=== PATIENT | male | born 1950 | race Caucasian/White ===

== ENCOUNTER 2017-09-11 15:00 | Observation (INO) | payer MEDICARE ==
[2017-09-11 15:45] LABS: #Eosinphils 0.3 thou/uL (0.0-0.7); #Lymphocytes 1.3 thou/uL (1.20-3.40); #Monocytes 0.5 thou/uL (0.11-0.59); #Neutrophils 2.5 thou/uL (1.40-6.50); %Basophils 0.8 % (0.0-1.0); %Eosinophils 7.3 % (0.0-10.0); %Monocytes 10.5 % (0.0-10.0); %Neutrophils 54.4 % (42.0-75.0); Mean Corpuscular Hemoglobin 26.6 pg (27.0-31.0); Mean Corpuscular Volume 80.8 fl (80.0-94.0); Mean Platelet Volume 6.7 fL (7.4-10.4); Platelet Count 134 thou/uL (130-400); RBC Distribution Width 15.2 % (11.5-14.5); Red Blood Cell (RBC) Count 4.49 mill/uL (4.70-6.10); White Blood Cell (WBC) Count 4.7 thou/uL (4.8-10.8)
[2017-09-11 15:58] LABS: Acetaminophen Less than 6.0 mcg/mL (10.0-30.0); Alcohol Less than 10 mg/dL (Less than 10); Salicylate Less than 8.0 mg/dL (15.0-30.0)
[2017-09-11 15:59] LABS: ALT (SGPT) 17 U/L (8-55); AST (SGOT) 29 U/L (5-34); Albumin 3.3 g/dL (3.4-4.8); Alkaline Phosphatase 132 U/L (40-150); Anion Gap 11 mmol/L (10-20); BUN (Urea Nitrogen) 23 mg/dL (8.4-25.7); Bilirubin, Total 0.4 mg/dL (0.2-1.2); CK (CPK) 186 U/L (30-200); Calc. Creatinine Clearance 0 mL/min (70-130); Calcium 8.4 mg/dL (7.8-10.44); Carbon Dioxide 20 mmol/L (23-31); Chloride 112 mmol/L (98-107); Estimated GFR-MDRD 61; Globulin 2.6 g/dL (2.4-3.5); Glucose 122 mg/dL (80-115); Lipase 24 U/L (8-78); Potassium 4.1 mmol/L (3.5-5.1); Protein, Total 5.9 g/dL (5.8-8.1); Sodium 139 mmol/L (136-145)
--- NOTE | 2017-09-11 16:05 | CT ---
CT BRAIN: Date: 09/11/17 HISTORY: Altered mental status. TECHNIQUE: Noncontrast enhanced CT images of the brain obtained from the base of the skull through the vertex. B rain and bone windows are obtained. FINDINGS: CT images of the brain demonstrate the brain to be unremarkable. No evidence of intracranial masses, hemorrhages, strokes, or contusions seen. IMPRESSION: Normal CT brain. POS: [facility]
--- NOTE | 2017-09-11 16:07 | RAD ---
CHEST 1 VIEW: Date: 09/11/17 HISTORY: 67-year-old male with history of altered mental status. COMPARISON: 08/16/12. FINDINGS: Monitor leads overlie the chest. Bilateral pleural thickening. Less than optimal inspiration. No conf luent pneumonia, overt edema, or significant acute pleural effusion. IMPRESSION: Stable appearance of the chest. No new process. POS: OFF
[2017-09-11 16:13] LABS: CKMB 1.1 ng/mL (0-6.6); Troponin I Less than 0.010 ng/mL (< 0.028)
[2017-09-11] MEDS ORDERED: Ketorolac Tromethamine 30 MG/ML VIAL ONE (17:01)
[2017-09-11] MEDS ORDERED: Aspirin 325 MG TAB ONE (17:16)
[2017-09-11 17:30] LABS: Bilirubin Negative (Negative); Blood, Urine Negative (Negative); Clarity CLEAR (Clear); Glucose, Urine (Dipstick) Negative (Negative); Leukocyte Negative (Negative); Nitrite Negative (Negative); Protein, Urine (Dipstick) Negative (Neg-Trace); Specific Gravity, Urine 1.017 (1.002-1.036); Urobilinogen 0.2 mg/dL (0.2-1.0); pH, Urine 5.5 (5.0-9.0)
[2017-09-11 17:52] LABS: Amphetamine Not Detected (NotDetected); Barbiturates Screen Not Detected (NotDetected); Benzodiazepine Screen Not Detected (NotDetected); Cocaine Metabolite Screen Not Detected (NotDetected); Medtox Control Line Valid? VALID (VALID); Medtox Reader # READER 4; Methadone Not Detected (NotDetected); Methamphetamine Not Detected (NotDetected); Opiate Screen Not Detected (NotDetected); Oxycodone Screen Not Detected (NotDetected); Phencyclidine (PCP) Not Detected (NotDetected); THC/Cannabinoid Screen Not Detected (NotDetected); Tricyclic Screen Detected (NotDetected)
[2017-09-11] MEDS ORDERED: Ondansetron ODT 4 MG TAB PO PRN (18:52)
[2017-09-11] MEDS ORDERED: Ondansetron PF 4 MG/2 ML Vial IVP PRN (18:52)
[2017-09-11] MEDS ORDERED: Dextrose 5% in Water 1,000 ML IV PRN (18:52)
[2017-09-11] MEDS ORDERED: HumaLOG 300 UNITS/3 ML VIAL SC PRN ×2 (18:52)
[2017-09-11] MEDS ORDERED: Acetaminophen 325 MG TAB PO PRN (18:52)
[2017-09-11] MEDS ORDERED: Dextrose 50% Abboject 50 ML SYRINGE SLOW IVP PRN (18:52)
[2017-09-11 18:57] VITALS: BMI 28.7
[2017-09-11] MEDS ORDERED: Enoxaparin Sodium 40 MG/0.4 ML SYRINGE SC SCH (19:00)
--- NOTE | 2017-09-11 19:16 | HP ---
DATE OF ADMISSION: 09/11/2017 TIME OF SERVICE: 1750 hours. PRIMARY CARE PHYSICIAN: [facility]. CHIEF COMPLAINT: Altered mental status. HISTORY OF PRESENT ILLNESS: Mr. Hathaway is a 67-year-old male with history of diabetes, coronary art rosalba disease, hypertension, chronic arm and back pain who presents to the emergency department via EMS . Per the emergency room records, the patient was found attempting to drive somewhat unsuccessfully [place] by and off duty police inspector. He was alert and oriented only x1. EMS was activated and transported to the hospital. En route, his blood sugars were noted to be "normal." The patient states that he was driving his nephew or son to the mall, that person did not like the wa y he was taking corners and actually got out of the car and went inside before he had a chance to par k. Subsequently, patient states that he was having pain in his back and hip and was brought here for that. He does not really recall off duty police inspector or the EMS. Here, he has been afebrile. Labs were normal, vital signs have been normal. He is alert and oriente d to person, place, year, day of the month, but not the month itself is off by 1 and knows who the pr esident is. Denies any chest pain or shortness of breath. No nausea, vomiting. No diarrhea, constipation. He h as been in the heat some today. I have been taking tramadol as needed for his sciatic pain, but says it does not help at all. PAST MEDICAL HISTORY: 1. Sciatica of the right hip. 2. Bilateral arm pain. 3. Coronary artery disease with history of NE. 4. Diabetes mellitus type 2, takes a pill for that. 5. Hypertension. PAST SURGICAL HISTORY: 1. PTCA with PCI and stent placement. 2. Appendectomy remotely. 3. Left knee surgery. 4. Left ankle surgery. HOME MEDICATIONS: Unknown. He takes a pill for his diabetes that only he can recall. ALLERGIES: PENICILLIN causes a rash. FAMILY HISTORY: Negative for clotting or bleeding disorder, no immune dysfunction. Does not have an y known history of premature coronary artery disease. SOCIAL HISTORY: Negative for habits x3. He says he never smoked or drank. REVIEW OF SYSTEMS: All systems reviewed and negative except as stated as per HPI. PHYSICAL EXAMINATION: VITAL SIGNS: Temperature 97.6, pulse 94, blood pressure is 116/65, respiratory rate 18, satting 97% on room air. GENERAL: He is awake. He is alert. He is oriented x3, well-developed, well-nourished, white male w ho appears to be in no distress. HEENT: Normocephalic, atraumatic. Pupils are equal, round, react to light bilaterally. Mucous memb ranes are moist. No visible lesions. No thrush. No facial asymmetry. NECK: Supple. He has no lymphadenopathy, JVD, or thyromegaly with normal carotid upstroke. I do no t appreciate bruits. LUNGS: Clear. No wheezes, no rales or rhonchi. He has no prolonged expiratory phase. CARDIOVASCULAR: He has normal cardiac and regular. Occasional ectopy. No murmurs, rubs or gallops. PMI is normal size and nondisplaced. ABDOMEN: Soft, is nontender, nondistended. He has no rebound, rigidity, or guarding. He has no dis tention. Good bowel sounds in all 4 quadrants are heard. EXTREMITIES: No cyanosis or clubbing. He has got 1+ edema in the bilateral lower extremities just a marcello the ankle level down. He has got 2+ dorsalis pedis, posterior tibial pulses bilaterally when we push through the edema. He has no other rash or lesions noted. MUSCULOSKELETAL: Normal to inspection. Large joints appear normal. There are no palpable effusions . Range of motion is limited by back pain. NEUROLOGIC: Cranial nerves II-XII are grossly intact. There are no focal deficits and normal speech pattern. He has 5/5 strength. LABORATORY DATA: Sodium is 139, potassium 4.1, chloride 112, bicarbonate of 20, BUN 23, creatinine 1 .18 with his normal unknown but last checked here was 0.79 five years ago. Lactic acid was normal at 1.9, glucose normal at 122. Liver function is completely within normal limits. CK-MB was normal at 1.1. The troponin I less than 0.010 and BNP was 32.4. TSH 1.34. Urinalysis normal. Serum tox was negative for salicylate, acetaminophen and alcohol. Urine drug scr een is pending. CBC showed a white count of 4.7, hemoglobin 12.0, hematocrit of 36.3, platelet count is 134,000. IMAGING STUDIES: A CT scan of the brain without contrast that was negative for intracranial abnormal ity. It was normal. He also had a chest x-ray that showed bilateral pleural thickening and no acute cardiopulmonary disease. ASSESSMENT AND PLAN: 1. Metabolic encephalopathy: The cause is not clear, so it could be a toxic encephalopathy due to t he medication. We will contact his daughter and left a message hopefully will get a medication list to find what he supposed to be on. He might have been under the influence of some kind of pain medic ine that he takes for sciatica. 2. Diabetes mellitus type 2, does not sound to be insulin-dependent. His sugars are good now. We w ill continue him on sliding scale insulin and diabetic diet. 3. Coronary artery disease status post NE without angina. We will watch him overnight. 4. Hypertension, blood pressure right now is low end of normal. We will watch and add PRNs if gabriele d.
[2017-09-11 19:47] LABS: Troponin I Less than 0.010 ng/mL (< 0.028)
[2017-09-11] MEDS: Sodium Chloride 0.9% 1,000 ML IV SCH (20:55)
[2017-09-11] MEDS: Famotidine 20 MG TAB PO SCH (20:56)
[2017-09-11 23:00] LABS: Troponin I Less than 0.010 ng/mL (< 0.028)
[2017-09-12 03:18] VITALS: TEMP 97.5
[2017-09-12] MEDS: HYDROcodone/Acetaminophen 5/325 mg Tablet PO PRN ×2 (04:04→08:10)
[2017-09-12] MEDS: Sodium Chloride 0.9% 1,000 ML IV SCH (05:47)
[2017-09-12] MEDS: Famotidine 20 MG TAB PO SCH (08:10)
[2017-09-12 12:03] VITALS: BP 162/82
--- NOTE | 2017-09-14 11:17 | DIS ---
PRIMARY CARE PHYSICIAN: [facility] DATE OF ADMISSION: 09/11/2017 DATE OF DISCHARGE: 09/12/2017 DISCHARGE DIAGNOSES: 1. Toxic encephalopathy secondary to pain medications. 2. Chronic pain syndrome with sciatica. 3. Coronary artery disease with a history of myocardial infarction in the past. 4. Diabetes mellitus type 2, non-insulin dependent. 5. Essential hypertension. CONSULTATIONS: None. PROCEDURES: None. HISTORY AND PHYSICAL: Mr. Hathaway is a 67-year-old gentleman who was found by an off duty police off icer altered and trying to drive somewhere near the mall. The off duty police investigator called EMS. [facility] evaluation, he was awake and alert, but somewhat confused. He was brought to the emergency d epartment for evaluation. Workup in the ER was otherwise unremarkable. We are called for admission. HOSPITAL COURSE: The patient was seen and examined by me in the emergency department. He was placed in observation overnight. Regular medicines were continued and his sedating medicines were held. O vernight he did well and by the morning of 09/12/2017 he was back to his baseline and stable for disc harge with outpatient followup. PHYSICAL EXAMINATION: The patient was seen and examined on the day of discharge. Discharge plan and disposition was discussed with the patient [id number] at the bedside. DISCHARGE ACTIVITY: As tolerated. DISCHARGE DIET: Heart healthy recommended. DISCHARGE CONDITION: Stable. DISPOSITION: He will be discharged home via private vehicle. DISCHARGE MEDICATIONS: Home medications were continued as per the medication reconciliation.
--- NOTE | 2017-09-26 14:29 | EKG ---
Test Reason : AMS Blood Pressure : / mmHG Vent. Rate : 100 BPM Atrial Rate : 100 BPM P-R Int : 196 ms QRS Dur : 088 ms QT Int : 336 ms P-R-T Axes : 039 -16 043 degrees QTc Int : 433 ms Sinus rhythm and Premature ventricular complexes or Fusion complexes Moderate voltage criteria for LVH, may be normal variant Inferior infarct , age undetermined Abnormal ECG Confirmed by CRISTINE REDDING, MANUELITO ([id number]), society editor PHU CASAREZ ([id number]) on 09/26/2017 2:28:29 PM Referred By: Confirmed By:MANUELITO COLUNGA MD
== END 2017-09-12 13:20 | disposition home or self-care (01) ==
LOC: ERS 15:00 → 2SW 17:21
PROVIDERS: ADMIT Internal Medicine Infectious Disease; ATTEND Internal Medicine Infectious Disease
DX: G93.41 Metabolic encephalopathy (principal); E11.9 Type 2 diabetes mellitus without complications; I25.10 Atherosclerotic heart disease of native coronary artery without angina pectoris; I10 Essential (primary) hypertension; I25.2 Old myocardial infarction; Z88.0 Allergy status to penicillin; Z79.84 Long term (current) use of oral hypoglycemic drugs
CPT/HCPCS: 70450; 71045; 80306; 80307; 81003; 82550; 82553; 82962 ×2; 83605; 83690; 83880; 84484 ×2; 93005; 96361 ×3; 96372; 96374; 97139; 99285; G0378; 36415; 36416; 80053; 84443; 85025; J1650; J1885

== ENCOUNTER 2022-09-19 21:10 | Inpatient (IN) | payer OTHER ==
[2022-09-19 22:44] VITALS: BMI 28.8
[2022-09-19] MEDS ORDERED: Acetaminophen 325 MG TAB PO PRN (23:49)
[2022-09-19] MEDS ORDERED: Ondansetron PF 4 MG/2 ML Vial IVP PRN (23:49)
[2022-09-19] MEDS ORDERED: HumaLOG 300 UNITS/3 ML VIAL SC PRN (23:51)
[2022-09-19] MEDS ORDERED: Dextrose 50% Abboject 50 ML SYRINGE SLOW IVP PRN (23:51)
[2022-09-19] MEDS ORDERED: Dextrose 5% in Water 1,000 ML IV PRN (23:51)
[2022-09-19] MEDS ORDERED: Glucagon 1 MG/ML KIT IM PRN (23:51)
[2022-09-20] MEDS: Sodium Chloride 0.9% 1,000 ML IV SCH ×3 (00:01→21:38)
[2022-09-20 00:29] LABS: Anion Gap 12 mmol/L (10-20); BUN (Urea Nitrogen) 22 mg/dL (8.4-25.7); Calc. Creatinine Clearance 51 mL/min (70-130); Calcium 8.8 mg/dL (7.8-10.44); Carbon Dioxide 22 mmol/L (23-31); Chloride 111 mmol/L (98-107); Estimated GFR 44; Glucose 126 mg/dL (83-110); Potassium 3.7 mmol/L (3.5-5.1); Sodium 141 mmol/L (136-145)
[2022-09-20] MEDS ORDERED: traMADol HCl 50 MG TAB PO SCH ×2 (00:30→08:15)
[2022-09-20 00:34] LABS: Troponin I 0.043 ng/mL (< 0.028)
[2022-09-20 05:34] LABS: #Eosinphils 0.2 thou/uL (0.0-0.7); #Monocytes 0.7 thou/uL (0.11-0.59); #Neutrophils 2.7 thou/uL (1.40-6.50); %Basophils 0.7 % (0.0-1.0); %Eosinophils 4.3 % (0.0-10.0); %Lymphocytes 32.8 % (21.0-51.0); %Monocytes 12.6 % (0.0-10.0); %Neutrophils 49.4 % (42.0-75.0); Hemoglobin 15.9 g/dL (14.0-18.0); Mean Corpuscular HGB CONC 33.1 g/dL (32.0-36.0); Mean Corpuscular Hemoglobin 29.8 pg (27.0-31.0); Mean Corpuscular Volume 90.2 fl (78.0-98.0); Mean Platelet Volume 8.9 fL (7.4-10.4); Platelet Count 136 10x3/uL (130-400); RBC Distribution Width 13.2 % (11.5-14.5); Red Blood Cell (RBC) Count 5.33 mill/uL (4.70-6.10); White Blood Cell (WBC) Count 5.6 10x3/uL (4.8-10.8)
[2022-09-20 06:05] LABS: Troponin I 0.026 ng/mL (< 0.028)
[2022-09-20 06:06] LABS: ALT (SGPT) 65 U/L (8-55); AST (SGOT) 64 U/L (5-34); Albumin 3.7 g/dL (3.4-4.8); Alkaline Phosphatase 151 U/L (40-110); Anion Gap 13 mmol/L (10-20); BUN (Urea Nitrogen) 22 mg/dL (8.4-25.7); Bilirubin, Total 1.3 mg/dL (0.2-1.2); Calc. Creatinine Clearance 59 mL/min (70-130); Calcium 8.7 mg/dL (7.8-10.44); Carbon Dioxide 23 mmol/L (23-31); Chloride 112 mmol/L (98-107); Estimated GFR 52; Globulin 2.5 g/dL (2.4-3.5); Glucose 128 mg/dL (83-110); Potassium 4.2 mmol/L (3.5-5.1); Protein, Total 6.2 g/dL (5.8-8.1); Sodium 144 mmol/L (136-145)
[2022-09-20] MEDS: Aspirin 81 mg Enteric Coated Tablet PO SCH (08:21)
[2022-09-20] MEDS: Cefepime 1 GM in Sodium Chloride 0.9% 100 ML IVPB SCH ×2 (08:21→20:07)
[2022-09-20] MEDS: HYDROcodone/Acetaminophen 5/325 mg Tablet PO PRN ×2 (14:23→20:08)
[2022-09-20] MEDS: HumaLOG 300 UNITS/3 ML VIAL SC PRN (14:24)
[2022-09-20] MEDS ORDERED: Vancomycin 1.5 GRAM/300 ML BAG 1.5 GM in Premix Bag 1 BAG IVPB SCH (15:00)
[2022-09-20] MEDS ORDERED: Gabapentin 300 MG CAP PO SCH (16:43)
[2022-09-20] MEDS: Atorvastatin Calcium 40 MG TAB PO SCH (20:07)
[2022-09-20] MEDS: Gabapentin 300 MG CAP PO SCH (20:07)
[2022-09-20] MEDS: Latanoprost 0.005% Ophth Soln 2.5 ml Bottle EA EYE SCH (20:10)
[2022-09-20] MEDS ORDERED: Losartan 25 MG TAB PO SCH (20:45)
[2022-09-20] MEDS ORDERED: Pregabalin 75 MG CAP PO SCH (21:00)
[2022-09-21] MEDS: HYDROcodone/Acetaminophen 5/325 mg Tablet PO PRN ×4 (02:06→21:48)
[2022-09-21] MEDS: Levothyroxine Sodium 25 MCG TAB PO SCH (05:12)
[2022-09-21] MEDS: HumaLOG 300 UNITS/3 ML VIAL SC PRN ×2 (06:11→17:59)
[2022-09-21 06:14] LABS: #Basophils 0.1 thou/uL (0.0-0.2); #Eosinphils 0.3 thou/uL (0.0-0.7); #Monocytes 0.5 thou/uL (0.11-0.59); #Neutrophils 2.2 thou/uL (1.40-6.50); %Basophils 1.2 % (0.0-1.0); %Eosinophils 6.5 % (0.0-10.0); %Lymphocytes 27.6 % (21.0-51.0); %Monocytes 12.7 % (0.0-10.0); %Neutrophils 51.8 % (42.0-75.0); Hemoglobin 16.1 g/dL (14.0-18.0); Mean Corpuscular HGB CONC 32.5 g/dL (32.0-36.0); Mean Corpuscular Hemoglobin 29.9 pg (27.0-31.0); Mean Corpuscular Volume 92.2 fl (78.0-98.0); Mean Platelet Volume 9.2 fL (7.4-10.4); Platelet Count 124 10x3/uL (130-400); RBC Distribution Width 12.9 % (11.5-14.5); Red Blood Cell (RBC) Count 5.38 mill/uL (4.70-6.10); White Blood Cell (WBC) Count 4.2 10x3/uL (4.8-10.8)
[2022-09-21 06:29] LABS: ALT (SGPT) 58 U/L (8-55); AST (SGOT) 58 U/L (5-34); Albumin 3.5 g/dL (3.4-4.8); Alkaline Phosphatase 154 U/L (40-110); Anion Gap 9 mmol/L (10-20); BUN (Urea Nitrogen) 10 mg/dL (8.4-25.7); Bilirubin, Total 1.1 mg/dL (0.2-1.2); CRP (Inflammatory) Less than 0.50 mg/dL (= or < 0.5); Calc. Creatinine Clearance 81 mL/min (70-130); Calcium 9.1 mg/dL (7.8-10.44); Carbon Dioxide 24 mmol/L (23-31); Chloride 106 mmol/L (98-107); Estimated GFR 76; Globulin 2.9 g/dL (2.4-3.5); Glucose 161 mg/dL (83-110); Potassium 4.2 mmol/L (3.5-5.1); Protein, Total 6.4 g/dL (5.8-8.1); Sodium 135 mmol/L (136-145)
[2022-09-21] MEDS: Cefepime 1 GM in Sodium Chloride 0.9% 100 ML IVPB SCH (08:31)
[2022-09-21] MEDS: Gabapentin 300 MG CAP PO SCH ×3 (08:32→20:34)
[2022-09-21] MEDS: Aspirin 81 mg Enteric Coated Tablet PO SCH (08:32)
[2022-09-21] MEDS: Losartan 25 MG TAB PO SCH (08:32)
[2022-09-21 14:42] LABS: Vancomycin, Trough 9.8 ug/mL
[2022-09-21] MEDS: Vancomycin 1 GM in Premix Bag 1 BAG IVPB SCH (15:49)
[2022-09-21] MEDS ORDERED: Cefepime 2 GM in Sodium Chloride 0.9% 100 ML IVPB SCH (20:00)
[2022-09-21] MEDS ORDERED: Cefepime 1 GM in Sodium Chloride 0.9% 100 ML IVPB SCH (20:00)
[2022-09-21] MEDS: Atorvastatin Calcium 40 MG TAB PO SCH (20:34)
[2022-09-21] MEDS: Latanoprost 0.005% Ophth Soln 2.5 ml Bottle EA EYE SCH (20:35)
[2022-09-22] MEDS: Vancomycin 1 GM in Premix Bag 1 BAG IVPB SCH (02:36)
[2022-09-22] MEDS: Levothyroxine Sodium 25 MCG TAB PO SCH (05:25)
[2022-09-22] MEDS: HYDROcodone/Acetaminophen 5/325 mg Tablet PO PRN ×2 (05:25→15:41)
[2022-09-22 05:48] LABS: #Eosinphils 0.2 thou/uL (0.0-0.7); #Monocytes 0.7 thou/uL (0.11-0.59); #Neutrophils 2.1 thou/uL (1.40-6.50); %Basophils 0.7 % (0.0-1.0); %Eosinophils 4.9 % (0.0-10.0); %Monocytes 15.7 % (0.0-10.0); %Neutrophils 47.7 % (42.0-75.0); Hemoglobin 16.2 g/dL (14.0-18.0); Mean Corpuscular HGB CONC 32.9 g/dL (32.0-36.0); Mean Corpuscular Hemoglobin 29.9 pg (27.0-31.0); Mean Corpuscular Volume 90.9 fl (78.0-98.0); Mean Platelet Volume 9.5 fL (7.4-10.4); RBC Distribution Width 12.4 % (11.5-14.5); Red Blood Cell (RBC) Count 5.41 mill/uL (4.70-6.10); White Blood Cell (WBC) Count 4.3 10x3/uL (4.8-10.8)
[2022-09-22 05:49] LABS: Platelet Count 116 10x3/uL (130-400)
[2022-09-22 06:09] LABS: ALT (SGPT) 46 U/L (8-55); AST (SGOT) 45 U/L (5-34); Albumin 3.5 g/dL (3.4-4.8); Alkaline Phosphatase 159 U/L (40-110); Anion Gap 12 mmol/L (10-20); BUN (Urea Nitrogen) 10 mg/dL (8.4-25.7); Bilirubin, Total 1.1 mg/dL (0.2-1.2); Calc. Creatinine Clearance 97 mL/min (70-130); Calcium 9.3 mg/dL (7.8-10.44); Carbon Dioxide 22 mmol/L (23-31); Chloride 108 mmol/L (98-107); Estimated GFR 91; Globulin 2.9 g/dL (2.4-3.5); Glucose 182 mg/dL (83-110); Potassium 3.9 mmol/L (3.5-5.1); Protein, Total 6.4 g/dL (5.8-8.1); Sodium 138 mmol/L (136-145)
[2022-09-22] MEDS: Losartan 25 MG TAB PO SCH (08:53)
[2022-09-22] MEDS: Gabapentin 300 MG CAP PO SCH ×2 (08:53→15:42)
[2022-09-22] MEDS: Aspirin 81 mg Enteric Coated Tablet PO SCH (08:53)
[2022-09-22 12:50] VITALS: TEMP 97.8
[2022-09-22 19:45] VITALS: BP 130/84
== END 2022-09-22 16:20 | disposition home or self-care (01) | DRG 872 ==
LOC: NEURO 21:10
PROVIDERS: ADMIT Internal Medicine; ATTEND Internal Medicine
DX: A41.9 Sepsis, unspecified organism (principal); I50.32 Chronic diastolic (congestive) heart failure; N17.9 Acute kidney failure, unspecified; E87.20 Acidosis, unspecified; R65.20 Severe sepsis without septic shock; I24.8 Other forms of acute ischemic heart disease; I25.10 Atherosclerotic heart disease of native coronary artery without angina pectoris; I10 Essential (primary) hypertension; E78.5 Hyperlipidemia, unspecified; E11.9 Type 2 diabetes mellitus without complications; E03.9 Hypothyroidism, unspecified; G89.29 Other chronic pain; R79.89 Other specified abnormal findings of blood chemistry; M16.11 Unilateral primary osteoarthritis, right hip; M50.30 Other cervical disc degeneration, unspecified cervical region; M48.061 Spinal stenosis, lumbar region without neurogenic claudication; Z88.5 Allergy status to narcotic agent; Z88.0 Allergy status to penicillin; Z79.82 Long term (current) use of aspirin; Z79.899 Other long term (current) drug therapy; Z86.73 Personal history of transient ischemic attack (TIA), and cerebral infarction without residual deficits; Z90.49 Acquired absence of other specified parts of digestive tract; Z98.890 Other specified postprocedural states
CPT/HCPCS: 36415; 36416; 72141; 72148; 74019; 80053; 80202; 85025; 85652; 86140; J0692; J1650; J1815; J3370; J3370-JW; J3490; J7050